=== PATIENT | male | born 1950 | race Caucasian/White ===

== ENCOUNTER 2020-08-12 08:45 | Emergency (ER) | payer MEDICARE ==
[2020-08-12] VITALS (7 sets, daily range): BP systolic 103–116; BP diastolic 69–87
[~2020-08-12] VITALS: Ht 175.3 cm; Wt 59.0 kg
[2020-08-12 09:20] LABS: BASOPHILS % (AUTO) 3.2 % (0.0-2.0); EOSINOPHILS % (AUTO) 0.9 % (0.0-3.0); HEMATOCRIT 28.2 % (42.0-52.0); HEMOGLOBIN 9.1 G/DL (14.2-18.0); LYMPHOCYTES % (AUTO) 20.1 % (20.0-45.0); MEAN CORPUSCULAR VOLUME 110 FL (80-99); MONOCYTES % (AUTO) 11.8 % (1.0-10.0); NEUTROPHILS % (AUTO) 63.9 % (45.0-75.0); PLATELET COUNT 142 K/UL (150-450); RED BLOOD COUNT 2.58 M/UL (4.70-6.10); RED CELL DISTRIBUTION WIDTH 23.1 % (11.6-14.8); WHITE BLOOD COUNT 11.6 K/UL (4.8-10.8)
[2020-08-12 09:46] LABS: ANION GAP 7 mmol/L (5-15); BLOOD UREA NITROGEN 43 mg/dL (7-18); CALCIUM 8.8 MG/DL (8.5-10.1); CARBON DIOXIDE 25 MMOL/L (21-32); CHLORIDE 108 MMOL/L (98-107); POTASSIUM 4.5 MMOL/L (3.5-5.1); SODIUM 140 MMOL/L (136-145)
[2020-08-12 09:59] LABS: ALANINE AMINOTRANSFERASE 88 U/L (12-78); ALBUMIN 2.3 G/DL (3.4-5.0); ALBUMIN/GLOBULIN RATIO 0.5 (1.0-2.7); ALKALINE PHOSPHATASE 1929 U/L (46-116); ASPARTATE AMINO TRANSFERASE 225 U/L (15-37); BILIRUBIN,TOTAL 0.9 MG/DL (0.2-1.0); CREATINE KINASE 300 U/L (26-308)
[2020-08-12] MEDS ORDERED: Aspirin Baby 81mg ORAL ONE (10:15)
[2020-08-12] MEDS ORDERED: Omnipaque-300 100ml vial INJ PRN (10:30)
--- NOTE | 2020-08-12 10:54 | Diagnostic Imaging Report ---
EXAM: CT CT Head no Contrast INDICATION: Trauma with head pain. TECHNIQUE: Axial images of the brain were obtained with subsequent sagittal and coronal reformats. All CT scans at this facility are performed using dose modulation techniques as appropriate to a performed exam including the following: automated exposure control with adjustment of the mA and/or kV according to patient size. COMPARISON STUDY: None. RADIATION DOSE: CTDIvol: 53.4 mGy DLP: 1152.4 mGy-cm Dose information generated by the CT scanner is available in PACS. FINDINGS: There is age related senescent changes with ventricular and sulcal prominence. White matter micro-ischemic changes noted. There is no acute large territory cortical infarct, hemorrhage, mass effect or shift. Ventricles and cisterns as well as brainstem and posterior fossa appear unremarkable. The sellar region is normal. Sinuses, mastoid air cells and bony calvarium appear intact. IMPRESSION: AGE RELATED SENESCENT CHANGES. NO ACUTE INTRACRANIAL ABNORMALITY.
[2020-08-12 11:17] LABS: APPEARANCE,URINE CLEAR; BILIRUBIN, URINE NEGATIVE (NEGATIVE); GLUCOSE, URINE (UA) NEGATIVE (NEGATIVE); KETONES,URINE NEGATIVE (NEGATIVE); LEUKOCYTE ESTERASE ,URINE 1+ (NEGATIVE); NITRITE,URINE NEGATIVE (NEGATIVE); PH,URINE 5 (4.5-8.0); PROTEIN,URINE 1+ (NEGATIVE); UROBILINOGEN,URINE NORMAL MG/DL (0.0-1.0)
[2020-08-12 11:21] LABS: COLOR,URINE YELLOW
--- NOTE | 2020-08-12 12:01 | Diagnostic Imaging Report ---
Indication: Abdominal pain Technique: Spiral acquisitions obtained through the abdomen and pelvis. No oral contrast utilized, per emergency room physician request No IV contrast utilized, per emergency room physician request. Multiplanar reconstructions were generated. Total dose length product 157 mGycm. CTDIvol(s) 3 mGy. Dose reduction achieved using automated exposure control Comparison: None Findings: Bones are intact. No acute fractures. No dislocations. No evidence of soft tissue contusion or intra-abdominal bleed. Lack of IV contrast limits assessment of the solid organs. The liver is enlarged, is filled with multiple low-attenuation lesions which are somewhat ill-defined in the absence of IV contrast, largest lesion probably measures about 4 cm in diameter. The the bladder, bile ducts, pancreas, spleen are unremarkable. The left adrenal demonstrates a 12 mm nodule. The right adrenal demonstrates a 25 x 13 mm nodule the right kidney demonstrates 2 or 3 calyceal calculi, largest measuring 5 mm long axis dimension. The right kidney demonstrates subcentimeter low-attenuation lesions which are too small to characterize, most likely benign simple cysts. There are also subcentimeter low-attenuation lesions in the left kidney which are too small to characterize. No renal or ureteral calculi, hydronephrosis, or hydroureter. There is a 9 x 7 mm calculus within the bladder lumen. Prostate is not enlarged. Lack of enteric contrast limits assessment of the GI tract. The appendix is normal. There are a few small colonic diverticula. No evidence of acute diverticulitis. No small bowel distention. No free or loculated intraperitoneal gas or fluid is evident. Numerous prominent lymph nodes are seen in the peripancreatic region and thompson hepatis, measuring up to 16 mm long axis diameter. No pelvic or retroperitoneal lymphadenopathy demonstrated. There is an expansile lesion of the anterior anterolateral right sixth rib, questionably with a pathologic fracture although discontinuity may just be due to destructive change. There are questionably subtle osteolytic and osteoblastic areas within the lumbar spine a few small slightly hyperattenuating lesions are seen within the pelvis. There is a fusiform infrarenal abdominal aortic aneurysm, which measures 3.5 x 3.2 cm. No evidence of leakage or rupture demonstrated. The common iliac arteries are ectatic but not frankly aneurysmal. The included lung bases demonstrate multiple sub-5 mm nodules scattered bilaterally. Impression: Somewhat limited exam, due to lack of IV contrast No evidence of bone or solid organ injury Evidence of disseminated neoplasm, with multiple lesions within the liver, bones, lung bases, bilateral adrenals, as well as peripancreatic lymphadenopathy. Primary lesion is not definitely demonstrated. 3.5 cm infrarenal abdominal aortic aneurysm Right intrarenal nonobstructive calculi. 9 x 7 mm bladder calculus Findings discussed by phone with Dr. Marie at the time of interpretation The CT scanner at [facility] is accredited by the [employer] and the scans are performed using protocols designed to limit radiation exposure to as low as reasonably achievable to attain images of sufficient resolution adequate for diagnostic evaluation.
--- NOTE | 2020-08-12 12:04 | Emergency Room Report ---
History of Present Illness General Chief Complaint: Multiple Trauma/Fall Source: Patient, EMS (Carlos Alberto Marie MD) Present Illness HPI Patient is a 70-year-old male brought in by EMS after increased left-sided shoulder pain and generalized weakness. Patient had reported prior history of seizures. Had been having increased pain with movements. Patient denied any vomiting. Prior history of seizure disorder for which he takes Keppra. Has no known history of prior cardiac disease. Patient only medications are noted to be meclizine as well as Keppra. Unknown if he takes blood thinners but possibly is taking Coumadin. Denies any prior history of cancer.Patient apparently been having intermittent dizziness and had some possible history of blood clots in the past. History is limited by patient's mental status. (Carlos Alberto Marie MD) Allergies: Coded Allergies: No Known Allergies (Unverified , 08/12/20) COVID-19 Screening Contact w/high risk pt: No Experienced COVID-19 symptoms?: No COVID-19 Testing performed WEIGHER AND CRUSHER: No (Carlos Alberto Marie MD) Patient History Past Medical History: see triage record Reviewed Nursing Documentation: PMH: Agreed; PSxH: Agreed (Carlos Alberto Marie MD) Nursing Documentation-PMH Hx Seizures: Yes - BRAIN TUMOR (Carlos Alberto Marie MD) Review of Systems All Other Systems: negative except mentioned in HPI (Carlos Alberto Marie MD) Physical Exam Vital Signs Date Time Temp Pulse Resp B/P (MAP) Pulse Ox O2 Delivery O2 Flow Rate FiO2 08/12/20 08:40 97.9 92 18 116/76 (89) 100 08/12/20 08:45 Room Air General Appearance: alert - Is a family member for bed 5, Chronically Ill Head: normocephalic Neck: full range of motion Respiratory: normal inspection, lungs clear Cardiovascular #1: normal inspection, regular rate, rhythm, no edema Gastrointestinal: soft, tenderness - Tenderness in the epigastric area Musculoskeletal: decreased range of motion Neurologic: alert, motor strength/tone normal, extracorporeal technician III-XII nml as tested, david arellano x3 - I thought that another somebody in the waiting room Psychiatric: normal inspection Skin: no rash (Carlos Alberto Marie MD) Medical Decision Making Diagnostic Impression: Primary Impression: Fall Additional Impressions: Metastasis Aortic aneurysm Shoulder pain ER Course Patient presented for increased generalized weakness. Differential diagnosis include was not limited to myocardial infarction, pneumonia,Malignancy among others. Because of complexity of patient's case laboratory tests and imaging studies were ordered. CT imaging of the head was ordered to patient's recent trauma. CT of the abdomen pelvis showed multiple metastatic lesions including to the liver as well as multiple lymph nodes. Patient appears to be somewhat confused. Numerous prominent lymph nodes are seen in the peripancreatic region in the thompson hepatis hepatus fusiform infrarenal abdominal aortic aneurysm measures 3-1/2cm nonobstructing renal stones multiple hypodensities to the liver. Patient was discussed with [facility] and patient will likely be transferred for further hospitalization. Labs Test 08/12/20 09:00 08/12/20 10:33 White Blood Count 11.6 K/UL (4.8-10.8) Red Blood Count 2.58 M/UL (4.70-6.10) Hemoglobin 9.1 G/DL (14.2-18.0) Hematocrit 28.2 % (42.0-52.0) Mean Corpuscular Volume 110 FL (80-99) Mean Corpuscular Hemoglobin 35.2 PG (27.0-31.0) Mean Corpuscular Hemoglobin Concent 32.1 G/DL (32.0-36.0) Red Cell Distribution Width 23.1 % (11.6-14.8) Platelet Count 142 K/UL (150-450) Mean Platelet Volume 8.0 FL (6.5-10.1) Neutrophils (%) (Auto) 63.9 % (45.0-75.0) Lymphocytes (%) (Auto) 20.1 % (20.0-45.0) Monocytes (%) (Auto) 11.8 % (1.0-10.0) Eosinophils (%) (Auto) 0.9 % (0.0-3.0) Basophils (%) (Auto) 3.2 % (0.0-2.0) Sodium Level 140 MMOL/L (136-145) Potassium Level 4.5 MMOL/L (3.5-5.1) Chloride Level 108 MMOL/L (98-107) Carbon Dioxide Level 25 MMOL/L (21-32) Anion Gap 7 mmol/L (5-15) Blood Urea Nitrogen 43 mg/dL (7-18) Creatinine 1.0 MG/DL (0.55-1.30) Estimat Glomerular Filtration Rate > 60 mL/min (>60) Glucose Level 105 MG/DL (74-106) Calcium Level 8.8 MG/DL (8.5-10.1) Total Bilirubin 0.9 MG/DL (0.2-1.0) Aspartate Amino Transf (AST/SGOT) 225 U/L (15-37) Alanine Aminotransferase (ALT/SGPT) 88 U/L (12-78) Alkaline Phosphatase 1929 U/L (46-116) Total Creatine Kinase 300 U/L (26-308) Troponin I 0.270 ng/mL (0.000-0.056) Total Protein 6.7 G/DL (6.4-8.2) Albumin 2.3 G/DL (3.4-5.0) Globulin 4.4 g/dL Albumin/Globulin Ratio 0.5 (1.0-2.7) Urine Color Yellow Urine Appearance Clear Urine pH 5 (4.5-8.0) Urine Specific [place] 1.015 (1.005-1.035) Urine Protein 1+ (NEGATIVE) Urine Glucose (UA) Negative (NEGATIVE) Urine Ketones Negative (NEGATIVE) Urine Blood Negative (NEGATIVE) Urine Nitrite Negative (NEGATIVE) Urine Bilirubin Negative (NEGATIVE) Urine Urobilinogen Normal MG/DL (0.0-1.0) Urine Leukocyte Esterase 1+ (NEGATIVE) Urine RBC 0-2 /HPF (0 - 0) Urine WBC 5-10 /HPF (0 - 0) Urine Squamous Epithelial Cells Occasional /LPF Urine Bacteria Few /HPF (NONE) (Carlos Alberto Marie MD) ER [facility] EKG Diagnostic Results Rate: normal Rhythm: NSR ST Segments: other (Carlos Alberto Marie MD) Last Vital Signs Date Time Temp Pulse Resp B/P (MAP) Pulse Ox O2 Delivery O2 Flow Rate FiO2 08/12/20 08:45 92 18 08/12/20 08:45 97.9 116/76 100 Room Air Status: unchanged (Carlos Alberto Marie MD) Disposition: SHORT-TERM HOSP Condition: Serious Referrals: [facility] (PCP) Carlos Alberto Marie MD Aug 12, 2020 12:04 Billy Hameed MD Aug 12, 2020 17:10
[2020-08-12 12:09] LABS: INR 1.6 (0.9-1.1)
[2020-08-12] MEDS ORDERED: cefTRIAXone 1 GM in NS 55 ML IVPB ONE (12:45)
--- NOTE | 2020-08-12 16:00 | Diagnostic Imaging Report ---
Indication: Chest pain Technique: One view of the chest Comparison: none Findings: Lungs and pleural spaces are clear. Heart size is normal. Impression: No acute process
--- NOTE | 2020-08-12 16:07 | Diagnostic Imaging Report ---
Indication: Reason For Exam: PAIN Technique: One view of the pelvis Comparison: none Findings: No acute fractures. No dislocations. Joint spaces are preserved. Impression: Negative
--- NOTE | 2020-08-13 16:04 | Diagnostic Imaging Report ---
Indication: Left shoulder pain Technique: 3 views of the left shoulder Comparison: none Findings: No acute fractures. No dislocations. The joint spaces are preserved. Impression: Negative
--- NOTE | 2020-08-13 17:04 | Cardiology Report ---
APPROVED REPORT EKG Measurement Heart [id number] <Conclusion> Normal sinus rhythm Left axis deviation Nonspecific ST and T wave abnormality Prolonged QT Abnormal ECG
== END 2020-08-12 19:05 | disposition short-term general hospital (02) ==
LOC: EDBD 08:45 → EMR 09:43 → EDBEDREQ 12:22 → EMR 19:05
DX: I71.9 Aortic aneurysm of unspecified site, without rupture (principal); M25.512 Pain in left shoulder; C78.7 Secondary malignant neoplasm of liver and intrahepatic bile duct; C79.51 Secondary malignant neoplasm of bone; C78.02 Secondary malignant neoplasm of left lung; C78.01 Secondary malignant neoplasm of right lung; C79.72 Secondary malignant neoplasm of left adrenal gland; C79.71 Secondary malignant neoplasm of right adrenal gland; C78.6 Secondary malignant neoplasm of retroperitoneum and peritoneum; N20.0 Calculus of kidney; N21.0 Calculus in bladder; R07.9 Chest pain, unspecified
CPT/HCPCS: 36415; 70450; 71045; 72170; 73030; 74176; 80053; 81003; 82550; 84484; 85025; 85610; 85730; 93005; 96365; 99285; J0696; U0002